=== PATIENT | male | born 1950 | race Caucasian/White ===

== ENCOUNTER → 2017-07-07 | Outpatient (CLI) | payer OTHER | LOC: GMAM 12:16 | PROVIDERS: ATTEND Family Medicine | DX: M10.9 Gout, unspecified (principal); Z12.5 Encounter for screening for malignant neoplasm of prostate | CPT/HCPCS: 84550; G0103 ==

== ENCOUNTER → 2017-08-12 | Outpatient (CLI) | payer OTHER | LOC: GMAM 15:08 | PROVIDERS: ATTEND Family Medicine | DX: E53.8 Deficiency of other specified B group vitamins (principal); E55.9 Vitamin D deficiency, unspecified; R53.83 Other fatigue ==

== ENCOUNTER → 2017-08-13 | Outpatient (CLI) | payer OTHER ==
--- NOTE | 2017-08-14 08:51 | RAD ---
EXAM DESCRIPTION: Abdomen 1 View CLINICAL HISTORY: 66 years Male, CALCULUS OF KIDNEY COMPARISON: None. TECHNIQUE: Supine view of the abdomen was performed. FINDINGS: Multiple air distended bowel loops are identified with no evidence of bowel obstruction. Moderate amount of fecal material is identified. Hyperdense foci are noted overlying both kidneys the largest measuring 3.5 mm on each side. IMPRESSION: Hyperdense foci are noted overlying bilateral renal shadows most likely representing renal calculi. Constipation. Electronically signed by: Honey Rao MD 08/14/2017 8:50 AM CDT
== END ==
LOC: RAD 14:57
PROVIDERS: ATTEND Urology
DX: N20.0 Calculus of kidney (principal)

== ENCOUNTER 2017-12-24 05:49 | Day surgery (SDC) | payer OTHER ==
[2017-12-24] MEDS ORDERED: LACTATED RINGERS 1,000 ML ONE (06:12)
[2017-12-24] MEDS ORDERED: MIDAZOLAM INJ 2 MG/2 ML VIAL ONE (07:23)
--- NOTE | 2017-12-24 09:39 | OP ---
DATE OF PROCEDURE: 12/24/17 PREOPERATIVE DIAGNOSIS: 1. History of colonic polyps. POSTOPERATIVE DIAGNOSIS: 1. Colonic polyps. 2. Colonic diverticulosis. 3. Internal hemorrhoids. PROCEDURE: 1. Colonoscopy. SURGEON: Ede Rm MD ANESTHESIA: Monitored anesthesia care. ESTIMATED BLOOD LOSS: Less than 5 mL. COMPLICATIONS: None. PROCEDURE: The patient was placed in the left lateral decubitus position. After deep was achieved, the adult Olympus colonoscope was inserted through the anus and into the rectum under direct visualization. A digital rectal exam was performed prior to insertion of the colonoscope and was noted to be normal. The endoscope was advanced under direct visualization to the cecum without difficulty. The terminal ileum was intubated. Photodocumentation of the appendiceal orifice, terminal ileum and ileocecal valve was performed. The endoscope was then progressively withdrawn and the total colonic lumen evaluated. The patient's bowel preparation was good, [place] Prep Score 8. Retroflexion was performed in the rectum. The endoscope was then withdrawn and the procedure terminated. The patient tolerated the procedure well with no immediate complications. FINDINGS: 1. Two polyps were seen in the cecum. These polyps measured 3 and 6 mm, they were sessile in nature, both polyps were removed completely with a cold snare and retrieved for pathology. 2. Colonic diverticulosis was seen in the sigmoid colon, characterized by small diverticula with no evidence of bleeding or inflammation. 3. Grade 2 non-bleeding internal hemorrhoids were seen upon retroflexion in the rectum. IMPRESSION: 1. Colonic polyps status post polypectomies. 2. Sigmoid colonic diverticulosis. 3. Grade 2 non-bleeding internal hemorrhoids. RECOMMENDATIONS: 1. Okay to discharge home. 2. Resume regular diet. 3. Resume home medications. 4. Repeat colonoscopy in 5 years depending upon pathology results. 5. Followup with the patient's primary care physician as previously scheduled. 6. Followup in GI clinic with Dr. Rm as needed. #[id number] [facility]
[2017-12-24] MEDS ORDERED: PROPOFOL 200 MG/20 ML VIAL IV ONE (10:00)
[2017-12-24 11:16] VITALS: O2SAT 96
[2017-12-24 11:17] VITALS: BP 147/94; TEMP 96.7
== END 2017-12-24 10:25 | disposition home or self-care (01) ==
LOC: AMB 05:49
PROVIDERS: ATTEND Internal Medicine Gastroenterology
DX: Z12.11 Encounter for screening for malignant neoplasm of colon (principal); D12.0 Benign neoplasm of cecum; K57.30 Diverticulosis of large intestine without perforation or abscess without bleeding; K64.1 Second degree hemorrhoids; K62.89 Other specified diseases of anus and rectum; I10 Essential (primary) hypertension; E11.9 Type 2 diabetes mellitus without complications; K21.9 Gastro-esophageal reflux disease without esophagitis; M10.9 Gout, unspecified; Z86.010 Personal history of colon polyps; Z87.891 Personal history of nicotine dependence; Z79.84 Long term (current) use of oral hypoglycemic drugs
CPT/HCPCS: 00812; 45385; J2250; J3490; J7120

== ENCOUNTER → 2018-02-09 | Outpatient (CLI) | payer OTHER | LOC: GMAM 11:47 | PROVIDERS: ATTEND Family Medicine | DX: E53.8 Deficiency of other specified B group vitamins (principal); M10.9 Gout, unspecified; E55.9 Vitamin D deficiency, unspecified ==

== ENCOUNTER → 2018-02-13 | Outpatient (CLI) | payer OTHER ==
--- NOTE | 2018-02-13 14:26 | MRI ---
EXAM DESCRIPTION: Lumbar Spine w/o Contrast CLINICAL HISTORY: LUMBAR RADICULOPATHY COMPARISON: None Available. TECHNIQUE: MRI of the lumbar spine is performed according to our usual protocol with axial and sagittal multi sequence imaging. FINDINGS: Sagittal T2 images reveal decreased signal intensity consistent with desiccation of the intervertebral discs at all lumbar disc levels. Posterior annular bulges are mild with more focal discal abnormality at L5-S1. No prevertebral mass or aneurysm. Lower cord and conus appear normal. Tip of the conus is behind upper L1. Sagittal T1 images reveal benign marrow signal characteristics. Schmorl's node in the inferior endplate of L1. Normal T1 signal intensity and appearance of the lower cord and conus. Sagittal STIR images are negative for marrow edema within the vertebral bodies or posterior elements. No paraspinous fluid collection or cystic lesion. Axial T1 and T2-weighted images were obtained to evaluate the disc levels. L1-L2: Minimal posterior annular bulge without spinal stenosis or neural foraminal narrowing. Facets appear mildly hypertrophic. Normal appearance of the lower cord and conus. L2-L3: Mild diffuse posterior annular bulge without focal herniation. No spinal stenosis or neural foraminal narrowing. Mild facet hypertrophic changes.. L3-L4: Mild posterior annular bulge without spinal stenosis or significant neural foraminal narrowing. Moderate facet hypertrophic changes with increased fluid in the facet joints. Mild narrowing of subarticular recesses without nerve root displacement. L4-5: Mild diffuse posterior annular bulge without spinal stenosis or significant neural foraminal narrowing. Moderate facet hypertrophic spurring is seen left more than right with moderate ligamentum flavum thickening causing mild subarticular recess narrowing. L5-S1: Broad-based midline disc protrusion measures 6 mm in AP dimension and 2 cm in mediolateral width. This extends inferiorly behind upper S1. No contact with the descending S1 nerve roots. No significant spinal stenosis. There is mild neural foraminal narrowing bilaterally. Mild facet hypertrophy without subarticular recess or lateral recess compromise. Sacrum appears intact. No retroperitoneal mass or aneurysm. IMPRESSION: Large midline disc protrusion at L5-S1 measures 6 mm without nerve root compression or significant spinal stenosis. Lumbar disc degeneration with mild annular bulges at L1-2 through L4-5. Electronically signed by: Jostin Torrez MD 02/13/2018 2:24 PM [employer]
== END ==
LOC: MRI 10:50
PROVIDERS: ATTEND Family Medicine
DX: M51.16 Intervertebral disc disorders with radiculopathy, lumbar region (principal); M51.27 Other intervertebral disc displacement, lumbosacral region

== ENCOUNTER → 2018-06-15 | Outpatient (CLI) | payer OTHER | LOC: GMAM 11:42 | PROVIDERS: ATTEND Family Medicine | DX: E53.8 Deficiency of other specified B group vitamins (principal); E29.1 Testicular hypofunction; M10.9 Gout, unspecified; E55.9 Vitamin D deficiency, unspecified ==

== ENCOUNTER → 2018-07-02 | Outpatient (CLI) | payer OTHER ==
--- NOTE | 2018-07-02 17:58 | CT ---
Procedure: CT LUNG SCREENING Exam Date: 07/02/2018. Ordering Provider: Tay Fontana Clinical Indication: PERSONAL HISTORY OF TOBACCO USE 20 pack years. Quit smoking 10 years ago. This patient meets eligibility criteria for low-dose CT lung cancer screening. Comparison: Chest x-ray 07/14/2017. Technique: Using a multislice scanner, sequential helical axial imaging was obtained in the thorax, 2.5 mm thickness, 2.5 mm separation, from the level of the thoracic inlet through the lung bases without IV contrast. A low dose protocol was utilized for BMI greater than than 30: BMI: 31.7. CTDI: 2.98 mGy. 120. kVp. 75 mA. DLP 118.56 mGy centimeters. 2D sagittal and coronal reconstructed images, 6.0 mm thickness, were obtained. This exam was performed according to our departmental dose optimization program which includes use of automated exposure control, adjustment of the mA and/or kV according to patient size and/or use of iterative reconstruction technique. Nodule measurements under 10 mm are given as mean value of 3 axes diameters. FINDINGS: Lungs and large airways: Bilateral pleural-parenchymal scarring in the inferior middle lobe and inferior lingula. Similar scarring in the medial left lower lobe. Calcified 4 mm nodule in the anterior left upper lobe. No abnormal nodules, no masses and no focal infiltrates. Pleura and space: Minimal bilateral pleural thickening. Mediastinum and doyle: evaluation limited by low dose technique and lack of IV contrast. Calcification of trachea and proximal bronchi cartilage. Heart and great vessels: Atherosclerotic calcification of coronary arteries. Chest wall, lower neck, axillae: Evaluation also limited by same factors as described above. Low-density nodule in the right lobe of the thyroid gland 1.5 cm transverse diameter Upper abdomen: Normal density of the peritoneal fat with no free fluid or free air. Gallbladder adrenal glands spleen liver and pancreas are partially visualized. Osseous structures: Evaluation limited by low dose MIP technique. Minimal spondylosis in the thoracic spine. No lytic or blastic lesions. IMPRESSION: No abnormal nodules, distinct masses or focal infiltrates in the lungs bilaterally. Calcified 3 mm granuloma left upper lobe. [facility] Best Practice guidelines:. Please see below for Lung RADS category and FOLLOW-UP.* *Lung RADS category Category 1 - No nodule or definitely benign nodules (probability of malignancy less than 1%). Follow-up: Continue annual screening with Low Dose Chest CT in 12 months. Electronically signed by: Rubens Lemons MD 07/02/2018 5:14 PM CDT
== END ==
LOC: CT 09:00
PROVIDERS: ATTEND Family Medicine
DX: Z87.891 Personal history of nicotine dependence (principal); J98.4 Other disorders of lung

== ENCOUNTER → 2018-09-21 | Outpatient (CLI) | payer OTHER | LOC: GMAM 14:44 | PROVIDERS: ATTEND Family Medicine | DX: E53.8 Deficiency of other specified B group vitamins (principal); E55.9 Vitamin D deficiency, unspecified; M10.9 Gout, unspecified; E29.1 Testicular hypofunction; E11.9 Type 2 diabetes mellitus without complications; I10 Essential (primary) hypertension; Z12.5 Encounter for screening for malignant neoplasm of prostate | CPT/HCPCS: 82306; 82607; 84403; 84550; G0103 ==

== ENCOUNTER → 2019-10-14 | Outpatient (CLI) | payer OTHER | LOC: GMAM 10:45 | PROVIDERS: ATTEND Family Medicine | DX: E53.8 Deficiency of other specified B group vitamins (principal); E29.1 Testicular hypofunction; M10.9 Gout, unspecified; E55.9 Vitamin D deficiency, unspecified; I10 Essential (primary) hypertension; E11.9 Type 2 diabetes mellitus without complications; Z12.5 Encounter for screening for malignant neoplasm of prostate | CPT/HCPCS: 82306; 82607; 84403; 84550; G0103 ==

== ENCOUNTER → 2019-10-18 | Outpatient (CLI) | payer OTHER ==
--- NOTE | 2019-10-19 07:39 | CT ---
EXAM DESCRIPTION: Abdoment/Pelvis w/o Contrast CLINICAL HISTORY: 68 years Male, CALCULUS OF KIDNEY TECHNIQUE: This exam was performed according to our departmental dose-optimization program, which includes automated exposure control, adjustment of the mA and/or kV according to patient size and/or use of iterative reconstruction technique. COMPARISON: None at time of initial interpretation. FINDINGS: Evaluation limited by lack of intravenous contrast. Bibasilar volume loss. No focal consolidation or suspicious pulmonary nodule. The contours of the liver, gallbladder, spleen, pancreas and adrenal glands are unremarkable. Normal renal contours. Bilateral nephrolithiasis. The largest right renal calculus measures 5 mm. The largest left renal calculus measures 1.0 cm. There is a proximal left ureteral stone measuring 5 mm with mild proximal hydronephrosis. Unremarkable bladder. Prostatic calcifications. Scattered colonic diverticula without focal inflammatory change. No evidence of bowel obstruction. No findings to suggest appendicitis. Normal appendix. No adenopathy. No focal fluid collection. No free air. Normal caliber abdominal aorta. Minimal atherosclerotic plaque. No acute or suspicious osseous abnormality. Scattered degenerative changes present. IMPRESSION: 1. Proximal left ureteral stone measuring 5 mm with mild proximal hydronephrosis. 2. Bilateral nephrolithiasis. Electronically signed by: Rey Zurita MD 10/19/2019 7:38 AM CDT
== END ==
LOC: CT 12:55
PROVIDERS: ATTEND Family Medicine
DX: N20.2 Calculus of kidney with calculus of ureter (principal)

== ENCOUNTER → 2020-04-12 | Outpatient (CLI) | payer OTHER | LOC: GMAM 14:10 | PROVIDERS: ATTEND Family Medicine | DX: E53.8 Deficiency of other specified B group vitamins (principal); E55.9 Vitamin D deficiency, unspecified; E11.9 Type 2 diabetes mellitus without complications; M10.9 Gout, unspecified ==